=== PATIENT | female | born 1990 ===

== ENCOUNTER 2017-01-07 08:25 | Emergency (ER) | payer MEDICAID, OTHER ==
[2017-01-07] MEDS ORDERED: Sodium Chloride 0.9% 1,000 ML IV ONE (08:46)
[2017-01-07] MEDS ORDERED: Sodium Chloride 0.9% 1,000 ML ONE (08:47)
[2017-01-07 09:11] LABS: BASO % 0.6 % (0.0-2.0); EOS # 0.2 K/uL (0.0-0.7); EOS % 2.9 % (0.0-4.0); HEMATOCRIT 36.6 % (34.0-47.0); LYMPH # 1.6 K/uL (1.0-4.3); LYMPH % 24.3 % (20.0-40.0); MEAN CELL VOLUME 87.7 fL (81.0-99.0); MEAN CORPUSCULAR HEMOGLOBIN 29.6 pg (27.0-31.0); MEAN CORPUSCULAR HGB CONC 33.8 g/dL (33.0-37.0); MEAN PLATELET VOLUME 7.6 fL (7.2-11.7); MONO # 0.9 K/uL (0.0-0.8); MONO % 13.7 % (0.0-10.0); NRBC % 0.1 % (0.0-2.0); RED CELL DISTRIBUTION WIDTH 13.1 % (11.5-14.5); WHITE BLOOD COUNT 6.6 K/uL (4.8-10.8)
[2017-01-07 09:20] LABS: RBC URINE 17 /hpf (0-3); URINE BACTERIA RARE (<OCC); URINE BILIRUBIN NEGATIVE (NEGATIVE); URINE BLOOD 1+ (NEGATIVE); URINE COLOR Yellow (YELLOW); URINE GLUCOSE (UA) NORMAL (Normal); URINE KETONE NEGATIVE (NEGATIVE); URINE LEUKOCYTE ESTERASE 1+ Leu/uL (Negative); URINE PROTEIN NEGATIVE (NEGATIVE); WBC URINE 22 /hpf (0-5)
[2017-01-07 09:44] LABS: CHLORIDE 105 mmol/L (98-107); SODIUM 137 mmol/L (132-148)
[2017-01-07 09:46] LABS: BILIRUBIN,TOTAL 0.5 mg/dL (0.2-1.3); GFR AFRICAN-AMERICAN > 60
[2017-01-07 09:47] LABS: ALB/GLOB RATIO 1.1 (1.0-2.1); ALKALINE PHOSPHATASE 79 U/L (38-126); ALT/SGPT 48 U/L (9-52); AST/SGOT 24 U/L (14-36); BLOOD UREA NITROGEN 10 mg/dL (7-17); CALCIUM 8.2 mg/dl (8.6-10.4); CARBON DIOXIDE 22 mmol/L (22-30); GLUCOSE,RANDOM 88 mg/dL (65-105); TOTAL PROTEIN 6.9 g/dL (6.3-8.3)
--- NOTE | 2017-01-07 10:18 | C.PDOC ---
History Of Present Illness 26 yr old female presents to the ER with complaints of fever, chills, nausea, vomiting and body aches for the last 3-4 days. Patient deneis sick contacts, unusual foods, chest pain, SOB, cough, abdominal pain, dysuria/hematuria or headache. Time Seen by Provider: 01/07/17 08:30 Chief Complaint (Nursing): Abdominal Pain History Per: Patient History/Exam Limitations: no limitations Onset/Duration Of Symptoms: Days (3-4 days) Current Symptoms Are (Timing): Still Present Severity: Mild Past Medical History Reviewed: Historical Data, Nursing Documentation, Vital Signs Vital Signs: Last Vital Signs Temp 98.4 F 01/07/17 10:27 Pulse 88 01/07/17 10:27 Resp 18 01/07/17 10:27 BP 110/72 01/07/17 10:27 Pulse Ox 98 01/07/17 13:36 - Medical History PMH: No Chronic Diseases Family History: States: No Known Family Hx - Social History Hx Tobacco Use: No Hx Alcohol Use: No Hx Substance Use: No - Immunization History Hx Tetanus Toxoid Vaccination: No Hx Influenza Vaccination: No Hx Pneumococcal Vaccination: No Review Of Systems Except As Marked, All Systems Reviewed And Found Negative. Constitutional: Positive for: Fever (Subjective ), Chills, Other ((+) Body aches ) Cardiovascular: Negative for: Chest Pain, Palpitations Respiratory: Negative for: Cough, Shortness of Breath Gastrointestinal: Positive for: Nausea, Vomiting. Negative for: Abdominal Pain Genitourinary: Negative for: Dysuria, Hematuria, Vaginal Discharge, Vaginal Bleeding Skin: Negative for: Rash Neurological: Negative for: Headache Physical Exam - Physical Exam Appears: Well, Non-toxic, In Acute Distress (Mildly uncomfortable ), Other ((+) Speaking in full sentences. ) Skin: Warm, Dry, No Rash Head: Normacephalic Oral Mucosa: Moist Throat: Normal, No Erythema, No Exudate, No Drooling Cardiovascular: Rhythm Regular Respiratory: Normal Breath Sounds, No Rales, No Rhonchi, No Wheezing Gastrointestinal/Abdominal: Soft, Tenderness (Mild diffuse tenderness to palpation, (-) McBurney's, (-) Stark's), No Guarding, No Rebound Back: Normal Inspection, No CVA Tenderness Extremity: No Swelling Neurological/Psych: Oriented x3 ED Course And Treatment - Laboratory Results Result Diagrams: 01/07/17 09:07 01/07/17 09:27 O2 Sat by Pulse Oximetry: 98 (RA ) Pulse Ox Interpretation: Normal Progress Note: PLAN: Blood work, UA UPreg ordered and reviewed. Patient gvien IV NS bolus, IV toradol and IV zofran. Reevaluation Time: 10:20 Reassessment Condition: Improved (On reassessment, patient is resting comfortably and states she is feeling better. On exam, abdomen is soft and nontender. Blood work and UA unremarkable. Symptoms consistent with viral syndrome. Rxs for Naprosym, Zofrand Sudafed given, and patient instructed to follow up with PMD/clinic in 1-2 days. She understands she should return to ED if symptoms worsen.) Disposition Counseled Patient/Family Regarding: Studies Performed, Diagnosis, Need For Followup, Rx Given - Disposition Referrals: [facility] [Outside] Disposition: HOME/ ROUTINE Disposition Time: 10:20 Condition: STABLE Additional Instructions: FOLLOW UP WITH YOUR DOCTOR IN 1-2 DAYS USE MEDICATIONS NEEDED DRINK PLENTY OF CLEAR FLUIDS, AND ADVANCE DIET SLOWLY TOLERATED RETURN TO ER IF SYMPTOMS WORSEN Prescriptions: Naproxen [Naprosyn Tab] 375 mg PO BID PRN #20 tab PRN Reason: pain Ondansetron [Zofran Odt] 4 mg PO Q8 PRN #12 odt PRN Reason: Nausea/Vomiting Pseudoephedrine [Sudafed] 60 mg PO Q6 PRN #12 tab PRN Reason: Nasal Congestion Instructions: Gastroenteritis (ED) Forms: [facility] (German), Work Excuse Print Language: SYRIAC - POA Present On Arrival: None - Clinical Impression Clinical Impression: Gastroenteritis, Viral syndrome - Scribe Statement The provider has reviewed the documentation as recorded by the Taya Matthew Provider Attestation: All medical record entries made by the Taya were at my direction and personally dictated by me. I have reviewed the chart and agree that the record accurately reflects my personal performance of the history, physical exam, medical decision making, and the department course for this patient. I have also personally directed, reviewed, and agree with the discharge instructions and disposition.
[2017-01-07 10:28] VITALS: BP 110/72; PULSE 88; RESP 18; TEMP 98.4
[2017-01-07 13:33] VITALS: O2SAT 98
== END 2017-01-07 10:40 | disposition home or self-care (01) ==
LOC: C.ER 08:25
DX: A08.4 Viral intestinal infection, unspecified (principal)
CPT/HCPCS: 80053; 81001; 83690; 84703; 85025; 96361; 96374; 96375; 99285; J1885; J2405; J7040

== ENCOUNTER 2017-06-22 15:24 | Emergency (ER) | payer MEDICAID, OTHER ==
[2017-06-22 15:48] VITALS: RESP 18
--- NOTE | 2017-06-22 16:00 | C.PDOC ---
History Of Present Illness 27 yr old female presents to the ER with complaints of fever, body aches, cough and vomiting since last night. Denies chest pain, SOB, nausea, abdominal pain, diarrhea, headache, weakness or numbness. Time Seen by Provider: 06/22/17 15:50 Chief Complaint (Nursing): Flu-like Symptoms History Per: Patient History/Exam Limitations: no limitations Onset/Duration Of Symptoms: Days (1) Current Symptoms Are (Timing): Still Present Past Medical History Reviewed: Historical Data, Nursing Documentation, Vital Signs Vital Signs: Last Vital Signs Temp 98.6 F 06/22/17 15:45 Pulse 103 H 06/22/17 15:45 Resp 18 06/22/17 15:45 BP 129/83 06/22/17 15:45 Pulse Ox 99 06/22/17 16:02 Family History: States: No Known Family Hx - Social History Hx Tobacco Use: No Hx Alcohol Use: No Hx Substance Use: No - Immunization History Hx Tetanus Toxoid Vaccination: No Hx Influenza Vaccination: No Hx Pneumococcal Vaccination: No Review Of Systems Except As Marked, All Systems Reviewed And Found Negative. Constitutional: Positive for: Fever (subjective), Other ((+) body aches) Cardiovascular: Negative for: Chest Pain Respiratory: Positive for: Cough. Negative for: Shortness of Breath Gastrointestinal: Positive for: Vomiting. Negative for: Nausea, Abdominal Pain , Diarrhea Neurological: Negative for: Weakness, Numbness, Headache Physical Exam - Physical Exam Appears: Well, Non-toxic, No Acute Distress Skin: Warm, Dry, No Rash Head: Normacephalic Eye(s): bilateral: PERRL Ear(s): Bilateral: Normal Nose: No Flaring, Discharge (scant clear b/L) Oral Mucosa: Moist, No Drooling Throat: No Erythema, No Exudate, No Drooling Neck: Trachea Midline, Supple, Other ((-) meningal sign) Cardiovascular: Rhythm Regular, No Murmur Respiratory: No Decreased Breath Sounds, No Accessory Muscle Use, No Rales, No Rhonchi, No Stridor, No Wheezing Gastrointestinal/Abdominal: Soft, No Tenderness, No Distention, No Guarding, No Rebound Back: No CVA Tenderness Extremity: Normal ROM, No Deformity, No Swelling Neurological/Psych: Oriented x3, Normal Speech ED Course And Treatment ECG: Interpreted By Me, Viewed By Me ECG Rhythm: Sinus Rhythm ECG Interpretation: Normal Interpretation Of ECG: SR@100/MIN,NAD, no acute t wave or ST-T changes. Rate From EC (BPM) O2 Sat by Pulse Oximetry: 99 (RA) Pulse Ox Interpretation: Normal Progress Note: On re-evaluation, pt is afebrile, hemodynamicaly stable. Non- toxic. Tolerate Po well in ED. PulsEOx 100% RA. ENT: no acute findings. neck : Supple, (-) meningeal sign. Lungs: CTA B/L, BS equal B/L. Abd: benign. back : (-) CVA tenderness. neuorlogicaly intact. Pt has clinical findings c/w Influenza-lie illness. Pt advised. re.f to F/U with PMD in 2-3 days for re- eavl. return if any new changes. Medical Decision Making Medical Decision Making: PLAN: * EKG * Motrin PO * Pepcis PO * Tamiflu PO * Zofran PO Disposition Counseled Patient/Family Regarding: Diagnosis, Need For Followup, Rx Given - Disposition Referrals: [facility] [Outside] Disposition: HOME/ ROUTINE Disposition Time: 16:37 Condition: STABLE Additional Instructions: ENCOURAGE FLUIDS TAKE MEDICATION PRESCRIBED FOLLOW UP WITH PMD IN 2-3 DAYS FOR RE-EVALUATION. RETURN TO ED IF NAY WORSENING OR NEW CHANGES. Prescriptions: Benzonatate [Tessalon Perle] 100 mg PO TID #20 capsule Ibuprofen [Motrin Tab] 600 mg PO Q6 #20 tab Oseltamivir Phosphate [Tamiflu] 75 mg PO BID #10 capsule Instructions: Influenza (ED) Forms: [facility] (Lao), Work Excuse - Clinical Impression Clinical Impression: Influenza-like illness - PA / [employer] / Resident Statement MD/DO has reviewed & agrees with the documentation as recorded. - Scribe Statement The provider has reviewed the documentation as recorded by the Scribe Arlene Matthew All medical record entries made by the Rebeccaiblyudmila were at my direction and personally dictated by me. I have reviewed the chart and agree that the record accurately reflects my personal performance of the history, physical exam, medical decision making, and the department course for this patient. I have also personally directed, reviewed, and agree with the discharge instructions and disposition.
[2017-06-22 16:59] VITALS: BP 118/82; PULSE 97; TEMP 98.9; O2SAT 98
--- NOTE | 2017-06-25 04:01 | CARD ---
APPROVED REPORT EKG Measurement Heart [id number] <Conclusion> Normal sinus rhythm Normal ECG
== END 2017-06-22 17:07 | disposition home or self-care (01) ==
LOC: C.ER 15:24
DX: J11.1 Influenza due to unidentified influenza virus with other respiratory manifestations (principal)